=== PATIENT | female | born 1940 ===

== ENCOUNTER 2023-11-20 08:24 | Day surgery (SDC) | payer OTHER ==
[2023-11-20] MEDS ORDERED: MIDAZOLAM HCL 2 MG/2 ML VIAL IV ONE (11:00)
[2023-11-20] MEDS ORDERED: ONDANSETRON HCL 2 MG/ML VIAL IV ONE (11:00)
[2023-11-20] MEDS ORDERED: DIPHENHYDRAMINE HCL 50 MG/ML VIAL 1ML IV ONE (11:00)
[2023-11-20] MEDS ORDERED: fentaNYL CITRATE 50 MCG/ML AMPUL IV PUSH ONE (11:00)
== END 2023-11-20 13:15 | disposition home or self-care (01) ==
LOC: AMB-ENDOS 08:24
PROVIDERS: ATTEND Colon & Rectal Surgery
DX: D12.5 Benign neoplasm of sigmoid colon (principal); K63.5 Polyp of colon; R19.5 Other fecal abnormalities; K64.8 Other hemorrhoids

== ENCOUNTER 2024-02-26 05:19 | Day surgery (SDC) | payer OTHER ==
[2024-02-26] MEDS ORDERED: ONDANSETRON HCL 2 MG/ML VIAL IV ONE (09:15)
[2024-02-26] MEDS ORDERED: MIDAZOLAM HCL 2 MG/2 ML VIAL IV ONE (09:15)
[2024-02-26] MEDS ORDERED: DIPHENHYDRAMINE HCL 50 MG/ML VIAL 1ML IV ONE (09:15)
[2024-02-26] MEDS ORDERED: fentaNYL CITRATE 50 MCG/ML AMPUL IV PUSH ONE (09:15)
== END 2024-02-26 10:35 | disposition home or self-care (01) ==
LOC: AMB-ENDOS 05:19
PROVIDERS: ATTEND Colon & Rectal Surgery
DX: D12.3 Benign neoplasm of transverse colon (principal); K52.838 Other microscopic colitis; Z88.2 Allergy status to sulfonamides

== ENCOUNTER 2024-06-08 05:40 | Day surgery (SDC) | payer OTHER ==
[2024-06-08] MEDS ORDERED: fentaNYL CITRATE 50 MCG/ML AMPUL IV PUSH ONE (10:30)
[2024-06-08] MEDS ORDERED: MIDAZOLAM HCL 2 MG/2 ML VIAL IV ONE (10:30)
[2024-06-08] MEDS ORDERED: DIPHENHYDRAMINE HCL 50 MG/ML VIAL 1ML IV ONE (10:30)
[2024-06-08] MEDS ORDERED: ONDANSETRON HCL 2 MG/ML VIAL IV ONE (10:30)
== END 2024-06-08 10:50 | disposition home or self-care (01) ==
LOC: AMB-ENDOS 05:40
PROVIDERS: ATTEND Colon & Rectal Surgery
DX: R19.5 Other fecal abnormalities (principal); K62.5 Hemorrhage of anus and rectum; Z12.11 Encounter for screening for malignant neoplasm of colon; Z91.013 Allergy to seafood; Z88.2 Allergy status to sulfonamides